=== PATIENT | male | born 1950 | race Caucasian/White ===

== ENCOUNTER → 2019-02-17 | Outpatient (CLI) | payer MEDICARE, OTHER ==
[2017-12-30 17:12] VITALS: BP 157/90
[~2019-02-17] MED LIST: ASPI-482 PO; ASPI325T8 PO; ATOR20TA58 PO; CLOP75TA PO; METO25TA4 PO; NITR0.4T SL
--- NOTE | 2019-02-17 12:04 | CARD ---
MR#: [id number] Date of Study: 02/17/2019 Ordering Physician: BLANQUITA MARINA, Referring Physician: BLANQUITA MARINA Tech: Britt Fox RDCS APPROVED REPORT EXAM: Two-dimensional and M-mode echocardiogram with Doppler and color Doppler. Other Information Quality : Good INDICATION Cardiac Disease: CAD 2D DIMENSIONS Left Atrium(2D)2.1 (1.6-4.0cm)IVSd0.8 (0.7-1.1cm) Aortic Root(2D)2.4 (2.0-3.7cm)LVDd4.2 (3.9-5.9cm) LVOT Diameter2.0 (1.8-2.4cm)PWd0.8 (0.7-1.1cm) LVDs2.7 (2.5-4.0cm)FS (%) 30.0 % SV52.6 mlLVEF(%)55.0 (>50%) Aortic Valve AoV Peak Prakash.108.2cm/sAoV VTI20.6cm AO Peak GR.4.7mmHgLVOT Peak Prakash.94.1cm/s LVOT VTI 19.58cmAO Mean GR.3mmHg KARMA (VMAX)2.27am6GVN (VTI)3.02cm2 Mitral Valve MV E Dvpuldoh66.9cm/sMV DECEL YVJQ425wz MV A Lvwvfzgf06.8cm/sMV CHK63yu E/A Ratio0.8MVA (PHT)4.07cm2 TDI E/Lateral E'7.4E/Medial E'9.0 Pulmonary Vein S1 Giebgizw13.7cm/sD2 Ftgbondo37.6cm/s LEFT VENTRICLE The left ventricle is normal size. There is normal left ventricular wall thickness. The left ventricu lar systolic function is normal and the ejection fraction is within normal range. The Ejection Fracti on is 55-60%. There is normal LV segmental wall motion. Transmitral Doppler flow pattern is Grade I-a bnormal relaxation pattern. RIGHT VENTRICLE The right ventricle is normal size. The right ventricular systolic function is normal. ATRIA The left atrium size is normal. The right atrium size is normal. The interatrial septum is intact wit h no evidence for an atrial septal defect or patent foramen ovale as noted on 2-D or Doppler imaging. AORTIC VALVE The aortic valve is calcified but opens well. Doppler and Color Flow revealed no significant aortic r egurgitation. There is no significant aortic valvular stenosis. MITRAL VALVE The mitral valve is calcified but opens well. There is no evidence of mitral valve prolapse but the a nterior mitral valve leaflet is domed. There is no mitral valve stenosis. Doppler and Color-flow reve aled mild mitral regurgitation. TRICUSPID VALVE The tricuspid valve is normal in structure and function. Doppler and Color Flow revealed no tricuspid valve regurgitation noted. There is no tricuspid valve stenosis. PULMONIC VALVE The pulmonic valve is not well visualized. Doppler and Color Flow revealed no pulmonic valvular regur gitation. There is no pulmonic valvular stenosis. GREAT VESSELS The aortic root is normal in size. The ascending aorta is not well seen. The IVC is normal in size an d collapses >50% with inspiration. PERICARDIAL EFFUSION There is no evidence of significant pericardial effusion. Critical Notification Critical Value: No <Conclusion> The left ventricle is normal size. The left ventricular systolic function is normal and the ejection fraction is within normal range. The Ejection Fraction is 55-60%. There is no significant aortic valvular stenosis. Doppler and Color Flow revealed no significant aortic regurgitation. Doppler and Color-flow revealed mild mitral regurgitation. Doppler and Color Flow revealed no tricuspid valve regurgitation noted. Signed by : Suresh Byrd MD Electronically Approved : 02/17/2019 12:04:22
== END | disposition home or self-care (01) ==
LOC: ECHO 10:59
PROVIDERS: ATTEND Internal Medicine Cardiovascular Disease
DX: I08.0 Rheumatic disorders of both mitral and aortic valves (principal); I25.118 Atherosclerotic heart disease of native coronary artery with other forms of angina pectoris
CPT/HCPCS: 93306

== ENCOUNTER → 2019-08-19 | Outpatient (CLI) | payer MEDICARE, OTHER ==
[2017-12-30 17:12] VITALS: BP 157/90
[~2019-08-19] MED LIST changes: -NITR0.4T SL; +NITR0.4T24 SL; +REGADENOSON 0.4 MG/5 ML DISP.SYRIN. IV ONE
--- NOTE | 2019-08-19 16:33 | RAD ---
MR#: [id number] Date of Study: 08/19/2019 Ordering Physician: BLANQUITA MARINA, Referring Physician: MCKENZIE LAUGHLIN Tech: SAMANTHA Munson, ARRT (R) (N) APPROVED REPORT Test Type: Pharmacological Stress Nurse/Tech: Jessica Monroy RN Test Indications: CAD Cardiac History: [place] with stent, x-smoker, HTN Medications: See Electronic Medical Record Medical History: See Electronic Medical Record Resting ECG: SR Resting Heart Rate: 69 bpm Resting Blood Pressure: 139/88mmHg Pretest Chest Pain: None Nurse/Tech Notes Lungs CTA, S1S2 Consent: The procedure was explained to the patient in lay terms. Informed consent was witnessed. Bebeto eout was entered into [employer]. History and Stress Test performed by RT Radha RamosR) (N) Pharm. Details Pharmacologic stress testing was performed using 0.4mg per 5ml of regadenoson given intravenously ove r 7-10 seconds. Stress Symptoms No chest pain or symptoms. POST EXERCISE Reason for Termination: Infusion complete Max HR: 103 bpm Max Blood Pressure: 148/83mmHg Blood Pressure response to exercise: Normal blood pressure response during stress. Heart Rate response to exercise: normal response Chest Pain: No. Arrhythmia: No. ST Change: No. INTERPRETATION Stress EKG Conclusion: The resting EKG shows a sinus rhythm and a small septal Q wave. The stress EKG shows no significant change from baseline. No EKG evidence of stressed induced ischemia. Imaging Protocol IMAGE PROTOCOL: Rest Tc-99m/stress Tc-99m 1 day Rest: Stress: Viability: Radiopharm.Tc99m GpvimlakxWg56h Sestamibi Gogi28rJx 33mCi Img Date 08/19/2019 08/19/2019 Inj-Img Ygoc95wer. 60min. Rest Admin Site:IV - Left AntecubitalAdministrator:DION Burciaga Stress Admin Site: IV - Left AntecubitalAdministrator: RT Radha RamosR)(N) STRESS DATA End Diast. Vol.84.0mlAv. Heart Rate72.0bpm LVEDV index BSA39.0mlCardiac Output0.0L/min End Syst. Vol.31.0mlCO Index BSA0.0L/min LVESV index BSA15.0mlMyocardial Uuae289.0g Eject. Cmozndmf10.0% Stress Scores Regional WT2.00Summed WT18.00 Regional WM0.00Summed WM2.00 LV Perfusion The stress scan shows a defect in the apical lateral wall. The rest scans showed a smaller defect in the apical wall. Nuclear imaging suggests an area of reversible ischemia in the apical lateral wall. A small portion o f this may be due to a previous infarct. Wall Motion Left ventricular systolic function is normal with no regional wall motion abnormalities and ejection fraction of 60%. LV Perf. Quant 17 Seg. SSS5.00 17 Seg. SRS3.50 17 Seg. SDS2.00 Stress Defect Extent (% LAD)19.10Rest Defect Extent (% LAD)7.50Rev. Defect Extent (% LAD)5.95 Stress Defect Extent (% LCX) 2.50Rest Defect Extent (% LCX)3.80Rev. Defect Extent (% LCX)0.00 Stress Defect Extent (% RCA)0.00Rest Defect Extent (% RCA)7.80Rev. Defect Extent (% RCA)0.00 Stress Defect Extent (% DEISY)9.15Rest Defect Extent (% DEISY)7.40Rev. Defect Extent (% DEISY)2.20 Conclusion 1. No EKG evidence of stressed induced ischemia. 2. Nuclear imaging is suggestive of an area of reversible ischemia in the apical lateral wall. 3. Mild left ventricular systolic function with no regional wall motion abnormalities and an ejection fraction of 60%. 4. Moderate risk Lexiscan nuclear stress test with normal LV function but a probable area of reversib le ischemia in the apical lateral wall. Signed by : Suresh Byrd MD Electronically Approved : 08/19/2019 12:58:37
== END | disposition home or self-care (01) ==
LOC: NM 08:50
PROVIDERS: ATTEND Internal Medicine Cardiovascular Disease
DX: I25.118 Atherosclerotic heart disease of native coronary artery with other forms of angina pectoris (principal); I10 Essential (primary) hypertension; I25.2 Old myocardial infarction; Z95.5 Presence of coronary angioplasty implant and graft; Z87.891 Personal history of nicotine dependence
CPT/HCPCS: 78452; 93017; A9500; J2785

== ENCOUNTER → 2020-04-11 | Outpatient (CLI) | payer MEDICARE, OTHER ==
[2019-09-09 09:00] VITALS: BP 157/87
[~2020-04-11] MED LIST changes: +ATOR40TA59 PO; -REGADENOSON 0.4 MG/5 ML DISP.SYRIN. IV ONE
--- NOTE | 2020-04-11 12:21 | CARD ---
MR#: [id number] Date of Study: 04/11/2020 Ordering Physician: BLANQUITA MARINA, Referring Physician: BLANQUITA MARINA, Tech: Laura Hinton APPROVED REPORT EXAM: Two-dimensional and M-mode echocardiogram with Doppler and color Doppler. Other Information Quality : FairHR: 62bpm Technically limited study due to smoking INDICATION Cardiac Disease: CAD RISK FACTORS Hypertension Hyperlipidemia 2D DIMENSIONS Left Atrium(2D)2.4 (1.6-4.0cm)IVSd1.1 (0.7-1.1cm) Aortic Root(2D)3.1 (2.0-3.7cm)LVDd5.2 (3.9-5.9cm) LVOT Diameter2.0 (1.8-2.4cm)PWd1.1 (0.7-1.1cm) LVDs2.8 (2.5-4.0cm)FS (%) 46.8 % SV102.2 mlLVEF(%)77.9 (>50%) Aortic Valve AoV Peak Prakash.112.8cm/sAoV VTI25.6cm AO Peak GR.5.1mmHgLVOT Peak Prakash.102.9cm/s LVOT VTI 21.55cmAO Mean GR.3mmHg KARMA (VMAX)2.40zv3HTM (VTI)2.77cm2 Mitral Valve MV E Gfgdlhjh61.6cm/sMV DECEL IQHQ202iu MV A Cpnishal57.7cm/sMV E Mean Gr.1mmHg MV CQS00cjV/A Ratio1.1 MVA (PHT)3.27cm2 TDI E/Lateral E'5.9E/Medial E'7.1 Pulmonary Valve PV Peak Shzsikfc41.1cm/sPV Peak Grad.2mmHg Tricuspid Valve TR P. Vmjzyqtr362by/sRAP VPTZHQDR9qmYo TR Peak Gr.72piUzWUTW17jjQy Pulmonary Vein S1 Nrqvvmtw45.5cm/sD2 Wqsggkuo33.0cm/s PVa cdsdomwc624khhv LEFT VENTRICLE The left ventricle is normal size. There is normal left ventricular wall thickness. The left ventricu lar systolic function is normal and the ejection fraction is within normal range. The Ejection Fracti on is 50-55%. There is normal LV segmental wall motion. Transmitral Doppler flow pattern is Grade II- pseudonormal filling dynamics. RIGHT VENTRICLE The right ventricle is normal size. There is normal right ventricular wall thickness. The right ventr icular systolic function is normal. ATRIA The left atrium size is normal. The right atrium size is normal. The interatrial septum is intact wit h no evidence for an atrial septal defect or patent foramen ovale as noted on 2-D or Doppler imaging. AORTIC VALVE The aortic valve is normal in structure and function. Doppler and Color Flow revealed no significant aortic regurgitation. There is no significant aortic valvular stenosis. Calculated aortic valve area is 2.77 cm2 with maximum pressure gradient of 6 mmHg and mean pressure gradient of 3 mmHg. MITRAL VALVE The mitral valve is normal in structure and function. There is no evidence of mitral valve prolapse. There is no mitral valve stenosis. Doppler and Color Flow revealed no mitral valve regurgitation note d. TRICUSPID VALVE The tricuspid valve is normal in structure and function. Doppler and Color Flow revealed trace tricus pid regurgitation with an estimated PAP of 26 mmHg. There is no tricuspid valve stenosis. PULMONIC VALVE The pulmonic valve is not well visualized. Doppler and Color Flow revealed no pulmonic valvular regur gitation. There is no pulmonic valvular stenosis. GREAT VESSELS The aortic root is normal in size. The ascending aorta is normal in size. The IVC is normal in size a nd collapses >50% with inspiration. PERICARDIAL EFFUSION There is no evidence of significant pericardial effusion. Critical Notification Critical Value: No <Conclusion> The left ventricular systolic function is normal and the ejection fraction is within normal range. Th e Ejection Fraction is 50-55%. There is normal LV segmental wall motion. Signed by : Conner Santamaria, Electronically Approved : 04/11/2020 12:21:22
== END | disposition home or self-care (01) ==
LOC: ECHO 08:47
PROVIDERS: ATTEND Internal Medicine Cardiovascular Disease
DX: I25.10 Atherosclerotic heart disease of native coronary artery without angina pectoris (principal)
CPT/HCPCS: 93306

== ENCOUNTER 2020-07-12 22:32 | Emergency (ER) | payer MEDICARE, OTHER ==
[~2020-07-12] VITALS: Ht 182.9 cm; Wt 131.8 kg
[2020-07-12 23:09] LABS: BASO % 1 % (0-3); EOS # 0.3 x10^3/uL (0.0-0.7); EOS % 7 % (0-3); HEMATOCRIT 41.6 % (39.0-53.0); HEMOGLOBIN 13.3 g/dL (13.0-17.5); LYMPH # 1.9 x10^3/uL (1.0-4.8); LYMPH % 50 % (24-48); MEAN CORPUSCULAR HEMOGLOBIN 29 pg (25-35); MEAN CORPUSCULAR HGB CONC 32 g/dL (31-37); MEAN CORPUSCULAR VOLUME 89 fL (79-100); MONO # 0.4 x10^3/uL (0.0-1.1); MONO % 12 % (0-9); NEUT # 1.2 x10^3/uL (1.8-7.7); NEUT % 31 % (31-73); PLATELET COUNT 272 x10^3/uL (140-400); RED BLOOD COUNT 4.67 x10^6/uL (4.30-5.70); RED CELL DISTRIBUTION WIDTH 14.2 % (11.5-14.5); WHITE BLOOD COUNT 3.8 x10^3/uL (4.0-11.0)
--- NOTE | 2020-07-12 23:09 | RAD ---
Exam: Chest one view INDICATION: Dizziness TECHNIQUE: Frontal view of the chest Comparisons: None FINDINGS: The cardiomediastinal silhouette and pulmonary vessels are within normal limits. The lung and pleural spaces are clear. IMPRESSION: No acute cardiopulmonary process. Electronically signed by: Filippo Caputo MD (07/12/2020 11:06 PM) [facility]
[2020-07-12 23:22] LABS: CALCIUM 8.3 mg/dL (8.5-10.1); CREATININE 1.1 mg/dL (0.7-1.3); GFR 79.8; POTASSIUM 3.7 mmol/L (3.5-5.1)
--- NOTE | 2020-07-12 23:32 | RAD ---
CT head without contrast. CT cervical spine without contrast. PQRS statement: CT scans at this facility use dose reduction including either automated exposure control, iterative reconstructions, and /or weight based radiation dosing via mA and kV modification when appropriate to reduce radiation dose to as low as reasonably achievable. HISTORY: Trauma, pain. CT head findings: No intracranial hemorrhage, mass, hydrocephalus, extra-axial fluid collections or infarction. No acute ischemic change. Partial opacification right ethmoid sinuses. Orbits, mastoids and bones are unremarkable. IMPRESSION: No acute intracranial CT abnormality. Right ethmoid sinus disease. CT cervical spine findings: Craniocervical junction intact. Cervical vertebral body height and alignment intact. No fracture of the cervical spine. Multilevel cervical disc height loss and disc osteophytes and uncovertebral spurring and facet spurring with spinal canal and neural foraminal stenoses. Lung apices and paraspinal tissues are unremarkable. IMPRESSION: No acute osseous injury of the cervical spine. Cervical disc disease as described above. Electronically signed by: Oliver Turner MD (07/12/2020 11:29 PM) [facility]
--- NOTE | 2020-07-12 23:40 | RAD ---
Maxillofacial CT without contrast HISTORY: Trauma, pain. FINDINGS: Patient is edentulous. No fracture of the facial bones. Mandible intact. Maxilla intact. Bony orbits intact. Partial opacification of the right ethmoid sinuses. No orbital edema or hematoma. There is a 2 x 1 cm oblong circumscribed cystic lesion of the right parasymphyseal mandible with endosteal scalloping. This is most likely a bone cyst. No additional lytic lesions of the facial bones or at the skull base. IMPRESSION: 1. Facial bones intact. 2. Nonspecific 2 x 1 cm oval circumscribed lytic lesion of the mandible. This is most likely a bone cyst. Imaging follow-up in 6 months could be considered to document stability. Exposure: One or more of the following individualized dose reduction techniques were utilized for this examination: 1. Automated exposure control 2. Adjustment of the mA and/or kV according to patient size 3. Use of iterative reconstruction technique Electronically signed by: Oliver Turner MD (07/12/2020 11:37 PM) [facility]
[2020-07-13] MEDS ORDERED: DIPH,PERTUSS(ACELL),TET VAC/PF 0.5 ML SYRINGE. VAX IM ONE (00:15)
--- NOTE | 2020-07-13 01:17 | PHYS DOC ---
Past Medical History Past Medical History: High Cholesterol, Hypertension, MS Past Surgical History: Other Additional Past Surgical Histo: pilonidal cyst, CARDIAC STENT Smoking Status: Never Smoker Alcohol Use: Heavy Drug Use: None General Adult EDM: Chief Complaint: SYNCOPE HPI: HPI: Patient is a 69 year old male with a history of CAD who presents to the Emergency Room after having a syncopal episode. Patient states that he felt suddenly very hot and dizzy. He tried to go to the bathroom and woke up on the floor. He states this has happened to him previously. He states it happens about once a year. One of the times it happened he ended up requiring a stent. He states he is now feeling fine other than some bilateral neck pain and nose pain. Heart Score: Risk Factors: Risk Factors: DM, Current or recent (<one month) smoker, HTN, HLP, family history of CAD, obesity. Risk Scores: Score 0 - 3: 2.5% MACE over next 6 weeks - Discharge Home Score 4 - 6: 20.3% MACE over next 6 weeks - Admit for Clinical Observation Score 7 - 10: 72.7% MACE over next 6 weeks - Early Invasive Strategies Current Medications: Current Medications Medications (Trade) Dose Ordered Sig/Oneyda Start Time Stop Time Status Last Admin Dose Admin Diphtheria/ Tetanus/Acell Pertussis (ADACEL TDap SYRINGE) 0.5 ml ONCE ONCE 07/13/20 00:15 07/13/20 00:16 DC Allergies: Allergies: Allergies Coded Allergies Type Severity Reaction Last Updated Verified No Known Drug Allergies 11/13/15 No Physical Exam: PE: General: Awake, alert, NAD. Well Nourished, well hydrated. Cooperative HEENT: Abrasions to face and bridge of nose, EOMI, PERRL, airway patent, moist oral mucosa Neck: Supple, trachea midline Respiratory: CTA bilaterally, normal effort, no wheezing/crackles CV: RRR, no murmur, cap refill <2 GI: Soft, nondistended, nontender, no masses MSK: No obvious deformities Skin: Warm, dry, intact Neuro: A&O x3, speech NL, sensory and motor grossly intact, no focal deficits Psych: Normal affect, normal mood, not suicidal or homicidal Current Patient Data: Labs: Laboratory Tests Test 07/12/20 22:55 07/13/20 00:39 White Blood Count 3.8 x10^3/uL (4.0-11.0) L Red Blood Count 4.67 x10^6/uL (4.30-5.70) Hemoglobin 13.3 g/dL (13.0-17.5) Hematocrit 41.6 % (39.0-53.0) Mean Corpuscular Volume 89 fL (79-100) Mean Corpuscular Hemoglobin 29 pg (25-35) Mean Corpuscular Hemoglobin Concent 32 g/dL (31-37) Red Cell Distribution Width 14.2 % (11.5-14.5) Platelet Count 272 x10^3/uL (140-400) Neutrophils (%) (Auto) 31 % (31-73) Lymphocytes (%) (Auto) 50 % (24-48) H Monocytes (%) (Auto) 12 % (0-9) H Eosinophils (%) (Auto) 7 % (0-3) H Basophils (%) (Auto) 1 % (0-3) Neutrophils # (Auto) 1.2 x10^3/uL (1.8-7.7) L Lymphocytes # (Auto) 1.9 x10^3/uL (1.0-4.8) Monocytes # (Auto) 0.4 x10^3/uL (0.0-1.1) Eosinophils # (Auto) 0.3 x10^3/uL (0.0-0.7) Basophils # (Auto) 0.0 x10^3/uL (0.0-0.2) Sodium Level 140 mmol/L (136-145) Potassium Level 3.7 mmol/L (3.5-5.1) Chloride Level 103 mmol/L (98-107) Carbon Dioxide Level 30 mmol/L (21-32) Anion Gap 7 (6-14) Blood Urea Nitrogen 11 mg/dL (8-26) Creatinine 1.1 mg/dL (0.7-1.3) Estimated GFR (Cockcroft-Gault) 79.8 Glucose Level 130 mg/dL (70-99) H Calcium Level 8.3 mg/dL (8.5-10.1) L Troponin I Quantitative < 0.017 ng/mL (0.000-0.055) < 0.017 ng/mL (0.000-0.055) Laboratory Tests 10/6/20 22:55 Laboratory Tests 07/12/20 22:55 Vital Signs: Vital Signs Date Time Temp Pulse Resp B/P (MAP) Pulse Ox O2 Delivery O2 Flow Rate FiO2 07/12/20 23:30 68 130/78 (95) 98 Room Air 07/12/20 22:32 97.2 18 97.2 EKG: EKG: [] Radiology/Procedures: Radiology/Procedures: [] Course & Med Decision Making: Course & Med Decision Making Pertinent Labs and Imaging studies reviewed. (See chart for details) Patient is a 69-year-old male with a history of coronary artery disease who presents to the emergency room complaining of generalized weakness and syncopal episode. History and exam are significant for prior episodes of syncope. Patient does not have any chest pain, abdominal pain, nausea, vomiting, fever. Given age and history differential for generalized weakness includes dehydration, electrolyte abnormalities, anemia, infection, arrhythmia, medication side effect, acute coronary syndrome. At this time CBC, BMP, EKG, UA, troponin, chest x-ray were ordered to evaluate for causes of weakness. Work-up including a delta troponin were negative. He did have CT scan of his head, C-spine, maxillofacial and was negative for acute injuries. Tetanus shot was updated. I offered the patient admission and at this time patient declines. He states he can see his physician tomorrow morning. I recommended to him that he needs to see a mergers and acquisitions manager in the next couple weeks. We discussed that if he has any further syncopal episodes, chest pain, shortness of breath, dizziness he needs to return to the emergency room for admission. Patient's test results and vitals while in the ED were fully reviewed and discussed with the patient. Patient is stable and at this time does not need admission to the hospital. We have discussed strict return precautions and the importance of following up with their Primary Care Physician. Patient stated understanding and was given an opportunity to ask any questions. Patient is in agreement with plan. Dragon Disclaimer: Dragon Disclaimer: This electronic medical record was generated, in whole or in part, using a voice recognition dictation system. Departure Departure Impression: Primary Impression: Syncope Additional Impression: Closed head injury Disposition: HOME, SELF-CARE Condition: IMPROVED Referrals: JASON CR MD (PCP) Patient Instructions: Syncope JOSE KNAPP MD Jul 13, 2020 01:17
[2020-07-13 02:00] VITALS: BP 129/65
--- NOTE | 2020-07-13 06:22 | EKG ---
[facility] [address] [place] [address] Test Date: 2020-07-12 Test Time: 22:45:13 Pat Name: GLENN HIGHTOWER Department: Room: Gender: M Rehab Director: : 1950 Requested By: JOSE KNAPP Order Number: [id number] Reading MD: Measurements Intervals Pfeifer Rate: 71 P: 59 OR: 200 QRS: 30 QRSD: 94 T: 55 QT: 386 QTc: 420 Interpretive Statements SINUS RHYTHM QRS(T) CONTOUR ABNORMALITY CONSISTENT WITH SEPTAL INFARCT AGE UNDETERMINED ABNORMAL ECG RI6.01 No previous ECG available for comparison
== END 2020-07-13 02:20 | disposition home or self-care (01) ==
LOC: ER 22:32
DX: S00.81XA Abrasion of other part of head, initial encounter (principal); S00.31XA Abrasion of nose, initial encounter; R55 Syncope and collapse; R94.31 Abnormal electrocardiogram [ECG] [EKG]; I10 Essential (primary) hypertension; E78.00 Pure hypercholesterolemia, unspecified; M54.2 Cervicalgia; I25.2 Old myocardial infarction; I25.10 Atherosclerotic heart disease of native coronary artery without angina pectoris; Z95.5 Presence of coronary angioplasty implant and graft
CPT/HCPCS: 36415; 70450; 70486; 71045; 72125; 80048; 84484; 85025; 90471; 90715; 93005; 99285

== ENCOUNTER → 2020-07-26 | Outpatient (CLI) | payer MEDICARE, OTHER ==
[2020-07-13 02:00] VITALS: BP 129/65
--- NOTE | 2020-07-26 14:33 | CARD ---
MR#: [id number] Date of Study: 07/26/2020 Ordering Physician: BLANQUITA AWTSON, Referring Physician: BLANQUITA WATSON, Tech: APPROVED REPORT PROCEDURE: Successful implantation of Medtronic Reveal Linq loop recorder INDICATIONS: Syncope of uncertain etiology PROCEDURE DETAILS: An informed consent was obtained from patient. Patient was brought to the procedure suite and her le ft chest and shoulder were prepped and draped in the usual fashion. 20 mL of 2% lidocaine was infilt rated into the skin and subcutaneous tissues for local anesthesia. An incision was made in the left fourth intercostal space 1 inch from midsternal line and using the introducer provided with the kit a track was created in subcutaneous tissue. Subsequently, with the help of the deployer provided with the kit, a Medtronic Reveal Linq loop recorder serial number [id number] was placed in the subcutaneous tissue. Hemostasis was secured. Patient tolerated the procedure well. There were no immediate comp lications. CONCLUSION: Successful implantation of Medtronic Reveal Linq loop recorder for syncope of uncertain etiology to r ule out any significant arrhythmias. Signed by : Blanquita Watson, Electronically Approved : 07/26/2020 14:33:03
== END ==
LOC: LINQ 11:33
PROVIDERS: ATTEND Internal Medicine Cardiovascular Disease
DX: R55 Syncope and collapse (principal); I10 Essential (primary) hypertension; E78.5 Hyperlipidemia, unspecified; E78.00 Pure hypercholesterolemia, unspecified; Z79.82 Long term (current) use of aspirin; Z79.899 Other long term (current) drug therapy
CPT/HCPCS: 33285; C1764

== ENCOUNTER → 2020-10-12 | Outpatient (CLI) | payer MEDICARE, OTHER ==
--- NOTE | 2020-10-12 18:18 | RAD ---
MR#: [id number] Date of Study: 10/12/2020 Ordering Physician: BLANQUITA MARINA, Referring Physician: MCKENZIE LAUGHLIN Tech: SAMANTHA Munson, ARRT (R) (N) APPROVED REPORT Test Type: Exercise Stress Nurse/Tech: Char Modi R.N. Test Indications: CAD Cardiac History: [place] 3 stents,htn, Medications: See Electronic Medical Record Medical History: See Electronic Medical Record Resting ECG: SR Resting Heart Rate: 67 bpm Resting Blood Pressure: 156/82mmHg Pretest Chest Pain: No chest pain Nurse/Tech Notes S1S2, lungs CTA Consent: The procedure was explained to the patient in lay terms. Informed consent was witnessed. Bebeto eout was entered into [employer]. History and Stress Test performed by DION Burciaga Stress Symptoms general fatigue, SOA POST EXERCISE Reason for Termination: Reached target heart rate Target HR: Yes Max HR: 130 bpm 87% of Maximum Predicted HR: 149 bpm Exercise duration: 6:39 min:sec, 2 Stage Exercise capacity: 7.0METs Max Blood Pressure: 180/80mmHg Blood Pressure response to exercise: Normal blood pressure response during stress. Heart Rate response to exercise: wnl Chest Pain: No. Arrhythmia: No. occ pvc INTERPRETATION Stress EKG Conclusion: The resting EKG shows a sinus rhythm with nonspecific ST-T wave changes. The stress EKG shows minimal nonspecific ST segment changes that are not diagnostic of ischemia. No EKG evidence of stress-induced ischemia. Imaging Protocol IMAGE PROTOCOL: Rest Tc-99m/stress Tc-99m 1 day Rest: Stress: Viability: Radiopharm.Tc99m MvhwfrqriDx92m Sestamibi Rbbo15xWr 32mCi Img Date 10/12/2020 10/12/2020 Inj-Img Bjwp18biq. 60min. Rest Admin Site:IV - Right AntecubitalAdministrator:DION Burciaga Stress Admin Site: IV - Right AntecubitalAdministrator: Tacho Justin, RT (R)(N) STRESS DATA End Diast. Vol.75.0mlLVEDV index BSA35.0ml End Syst. Vol.25.0mlLVESV index BSA12.0ml Myocardial Cihj980.0gEject. Yrnmlqtx63.0% Stress Scores Regional WT0.00Summed WT6.00 Regional WM0.00Summed WM2.00 LV Perfusion The stress scans show a slight apical defect. The rest scans show a slight apical defect. Nuclear imaging shows no reversible ischemia. Nuclear imaging shows a slight fixed defect near the apex most consistent with an attenuation defect. Wall Motion Left ventricular systolic function is normal with no regional wall motion abnormalities and an ejecti on fraction of 70%. LV Perf. Quant 17 Seg. SSS1.00 17 Seg. SRS9.00 17 Seg. SDS0.00 Stress Defect Extent (% LAD)3.80Rest Defect Extent (% LAD)18.10Rev. Defect Extent (% LAD)0.00 Stress Defect Extent (% LCX) 0.00Rest Defect Extent (% LCX)10.00Rev. Defect Extent (% LCX)0.00 Stress Defect Extent (% RCA)0.00Rest Defect Extent (% RCA)18.90Rev. Defect Extent (% RCA)0.00 Stress Defect Extent (% DEISY)1.30Rest Defect Extent (% DEISY)18.30Rev. Defect Extent (% DEISY)0.00 Conclusion 1. Good exercise tolerance with the patient walking for 6 minutes and 39 seconds on a Fidel protocol. 2. No reported chest pain with exertion. 3. No EKG evidence of stress-induced ischemia. 4. Nuclear imaging shows no reversible ischemia. 5. Nuclear imaging shows a small fixed apical defect most consistent with an attenuation defect. A s mall previous infarct cannot be excluded. 6. Normal left ventricular systolic function with no regional wall motion abnormalities and an ejecti on fraction of 70%. 7. Low risk treadmill nuclear stress test. Signed by : Suresh Byrd MD Electronically Approved : 10/12/2020 18:18:15
== END ==
LOC: NM 09:33
PROVIDERS: ATTEND Internal Medicine Cardiovascular Disease
DX: I25.10 Atherosclerotic heart disease of native coronary artery without angina pectoris (principal); I25.2 Old myocardial infarction
CPT/HCPCS: 78452; 93017; A9500

== ENCOUNTER → 2021-01-17 | Outpatient (CLI) | payer MEDICARE, OTHER ==
--- NOTE | 2021-01-17 17:09 | RAD ---
CT MAXILLOFACIAL WITHOUT CONTRAST History: Reason: BONE CYST / Spl. Instructions: / History: Comparison: July 12, 2020 Technique: Noncontrast CT imaging was performed of the maxillofacial. Coronal and sagittal reconstruc tions were performed. Exposure: One or more of the following individualized dose reduction techniques were utilized for thi s examination: 1. Automated exposure control 2. Adjustment of the mA and/or kV according to patient size 3. Use of iterative reconstruction technique. Findings: Increased right mandibular parasymphyseal lytic lesion measures 2.9 x 0.9 cm compared to 2.0 x 0.8 c m previously. There is mild expansion with endosteal scalloping. No fracture. Orbits are unremarkable. Opacification of right ethmoid air cells, unchanged. Mastoid air cells are c lear. Imaged intracranial contents are unremarkable. Multilevel cervical spondylosis partially imaged. Impression: 1. Increased right mandibular lytic lesion. Differential considerations include benign and malignant etiologies. Recommend MRI to further evaluate with and without contrast. Electronically signed by: Khanh Rojas DO (01/17/2021 5:06 PM) [id number]
== END ==
LOC: CT 10:14
PROVIDERS: ATTEND Internal Medicine Hematology & Oncology
DX: M85.40 Solitary bone cyst, unspecified site (principal); M27.8 Other specified diseases of jaws; M47.812 Spondylosis without myelopathy or radiculopathy, cervical region
CPT/HCPCS: 70486

== ENCOUNTER → 2021-08-25 | Outpatient (CLI) | payer MEDICARE, OTHER ==
[~2021-08-25] MED LIST changes: +GADOTERATE 7.5 MMOL/15ML VIAL. IVP ONE
[2021-08-25 12:20] LABS: CREATININE 0.8 mg/dL (0.7-1.3)
--- NOTE | 2021-08-28 10:11 | RAD ---
EXAM: MRI mandible with and without contrast. HISTORY: Mandibular osteolytic lesion. TECHNIQUE: MRI of the mandible was performed before and after the intravenous administration of 18 mL Clariscan. COMPARISON: 01/17/2021. FINDINGS: A T2 hyperintense well-circumscribed mass within the mandible extends from the midline into the right body and spans 3.7 x 1.1 cm transaxially. This is increased from 3.1 x 1.0 cm previously. It thins and breaches the anterior cortex to the right of midline. Postcontrast, it is mostly nonenha ncing. Enhancing septations and mild peripheral enhancement are noted along its medial aspect. There is no soft tissue mass, clear periosteal reaction or surrounding soft tissue edema. The patient is edentulous. No additional maxillary or mandibular lesions are identified. There are mo derate degenerative changes of the mid and lower cervical spine. Limited images of the brain reveal n o abnormality. There is mild mucosal thickening in the paranasal sinuses. IMPRESSION: 1. Interval increase in size in a expansile lytic lesion within the right body of the mandible, now m easuring 3.7 x 1.1 cm. It is mostly nonenhancing with minimal enhancing soft tissue mass immediately. A benign lesion such as a residual cyst is favored, but ongoing management is recommended given prog ression and breech of the cortex anteriorly. Electronically signed by: Yulia Angeles MD (08/28/2021 10:08 AM) [id number]
== END ==
LOC: MRI 10:54
PROVIDERS: ATTEND Internal Medicine
DX: M27.9 Disease of jaws, unspecified (principal); M89.50 Osteolysis, unspecified site
CPT/HCPCS: 36415; 70543; 82565; A9575

== ENCOUNTER → 2021-11-21 | Outpatient (CLI) | payer MEDICARE, OTHER ==
[~2021-11-21] MED LIST changes: -GADOTERATE 7.5 MMOL/15ML VIAL. IVP ONE
--- NOTE | 2021-11-21 20:20 | CARD ---
MR#: [id number] Date of Study: 11/21/2021 Ordering Physician: BLANQUITA MARINA, Referring Physician: BLANQUITA MARINA Tech: Teresa Lou [facility] APPROVED REPORT EXAM: Two-dimensional and M-mode echocardiogram with Doppler and color Doppler. Other Information Quality : AverageHR: 65bpm Rhythm : NSRTechnically limited study due to body habitus. INDICATION Cardiomyopathy RISK FACTORS Hypertension Hyperlipidemia Smoking 2D DIMENSIONS RVDd3.8 (2.9-3.5cm)Left Atrium(2D)3.0 (1.6-4.0cm) IVSd1.2 (0.7-1.1cm)Aortic Root(2D)3.3 (2.0-3.7cm) LVDd3.9 (3.9-5.9cm)LVOT Diameter2.0 (1.8-2.4cm) PWd1.2 (0.7-1.1cm)LVDs2.5 (2.5-4.0cm) FS (%) 36.3 %SV44.7 ml LVEF(%)66.6 (>50%) Aortic Valve AoV Peak Prakash.105.2cm/sAoV VTI24.4cm AO Peak GR.4.4mmHgLVOT Peak Prakash.97.0cm/s AO Mean GR.2mmHgAVA (VMAX)2.82cm2 Mitral Valve MV E Ahqlpcmf84.4cm/sMV DECEL LTUS712de MV A Osqyfdmb14.3cm/sE/A Ratio0.8 Pulmonary Valve PV Peak Gonzxzsp95.3cm/s Tricuspid Valve TR P. [id number]/sTR Peak Gr.16mmHg LEFT VENTRICLE The left ventricle is normal size. There is mild concentric left ventricular hypertrophy. The left ve ntricular systolic function is low normal. EF 50%. There is global hypokinesis of the left ventricle. Transmitral Doppler flow pattern is Grade I-abnormal relaxation pattern. RIGHT VENTRICLE The right ventricle is normal size. There is normal right ventricular wall thickness. The right ventr icular systolic function is normal. ATRIA The left atrium size is normal. The right atrium size is normal. The interatrial septum is intact wit h no evidence for an atrial septal defect or patent foramen ovale as noted on 2-D or Doppler imaging. AORTIC VALVE The aortic valve is not well visualized. Doppler and Color Flow revealed no significant aortic regurg itation. There is no significant aortic valvular stenosis. MITRAL VALVE The mitral valve is normal in structure and function. There is no evidence of mitral valve prolapse. There is no mitral valve stenosis. Doppler and Color-flow revealed mild mitral regurgitation. TRICUSPID VALVE The tricuspid valve is normal in structure and function. Doppler and Color Flow revealed trace tricus pid regurgitation. Estimated PAP 20 mmHg. There is no tricuspid valve stenosis. PULMONIC VALVE Doppler and Color Flow revealed no pulmonic valvular regurgitation. There is no pulmonic valvular ezequiel nosis. GREAT VESSELS The aortic root is normal in size. The ascending aorta is normal in size. The IVC is normal in size a nd collapses >50% with inspiration. PERICARDIAL EFFUSION There is no evidence of significant pericardial effusion. Critical Notification Critical Value: No <Conclusion> The left ventricular systolic function is low normal. EF 50%. There is global hypokinesis of the left ventricle. Signed by : Conner Santamaria, Electronically Approved : 11/21/2021 20:20:11
== END ==
LOC: ECHO 10:40
PROVIDERS: ATTEND Internal Medicine Cardiovascular Disease
DX: I34.0 Nonrheumatic mitral (valve) insufficiency (principal); I51.7 Cardiomegaly; I25.10 Atherosclerotic heart disease of native coronary artery without angina pectoris; I42.9 Cardiomyopathy, unspecified
CPT/HCPCS: 93306; C8929